=== PATIENT | female | born 1985 | race Caucasian/White ===

== ENCOUNTER 2019-06-13 21:18 | Observation (INO) | payer MEDICAID, SELFPAY ==
[2019-06-13 21:18] VITALS: BP 122/84; PULSE 109; RESP 15; TEMP 36.9; O2SAT 98; BMI 27.5
--- NOTE | 2019-06-13 22:10 | US_ITS ---
STUDY: ABDOMINAL ULTRASOUND - RIGHT UPPER QUADRANT REASON FOR VISIT: Female, 34 years old. Upper abdominal pain TECHNIQUE: Ultrasound evaluation of the right upper quadrant was performed with real-time and static simons-scale imaging. TECHNICAL QUALITY: Adequate. COMPARISON: None. FINDINGS: Liver: The liver measures 18.9 cm. There is normal echogenicity of the liver. The bile ducts are within normal limits. There is hepatic color flow. The direction of portal flow is hepatopetal. There is no demonstrated mass lesion. Gallbladder: The gallbladder wall measures 3.1 mm. There is a positive sonographic Gamez's sign. Gallbladder wall appears edematous. No definitive pericholecystic fluid is seen. There are multiple echogenic structures within the gallbladder, consistent with multiple gallstones. Common Bile Duct (C.B.D.): The common bile duct measures 2.5 mm. Pancreas: Limited visualization. Visualized aspects appear grossly unremarkable. Right Kidney: Normal size of the right kidney. The right kidney measures 10.5 x 5.8 x 3.4 cm. Normal renal cortex. The right cortex measures 1.2 cm. There is no demonstrated renal mass or cyst. There is no right hydronephrosis. US/Gallbladder IMPRESSION: Cholelithiasis. Mild gallbladder wall thickening with edematous wall. There is a positive sonographic Gamez's sign. Findings are concerning for acute cholecystitis. A nuclear medicine HIDA study may be performed to further evaluate as clinically needed. Hepatomegaly. Electronically Signed: Rahul Hastings, at 0:31 EDT Tel , Service support ,
--- NOTE | 2019-06-13 22:11 | RAD_ITS ---
STUDY: X-RAY CHEST REASON FOR EXAM: Female, 34 years old. Cough TECHNIQUE: Frontal and lateral views of the chest. COMPARISON: None. FINDINGS: The lungs are clear and expanded. There is no demonstrated pleural abnormality. Normal size heart. Normal mediastinum and farooq. Normal visualized pulmonary arteries. Normal visualized aortic arch and descending thoracic aorta. Mild scoliotic curvature to the spine. Normal visualized ribs, clavicles, and shoulders. There is no demonstrated abnormality of the visualized soft tissue structures of the upper abdomen. RAD/Chest PA and Lateral IMPRESSION: No acute cardiopulmonary disease identified. Electronically Signed: Rahul Hastings, at 0:44 EDT Tel , Service support ,
--- NOTE | 2019-06-13 22:11 | ED.DCSUM_ITS ---
- ER Visit Summary Date of Service: 06/13/19 Chief Complaint: I did not feel good History of Present Illness: The patient is a 34 F who presents with chief complaint of generally not feeling well. She states that she has had intermittent nausea and vomiting for weeks as well as vague abdominal pain. She has been seen for this. She states she had an ultrasound Friday at another hospital. She initially states that this showed gallstones but then said it just showed sludge. She also complains of nausea. She complains of left-sided abdominal pain. She complains of lower chest pain radiating through to her back. She states she felt feverish today and had a temperature of 101. Physical Examination: Heart rate 109 afebrile vitals otherwise normal Resting comfortably no distress Moist mucous membranes Heart regular slightly tachycardic Lungs are clear Abdomen is soft and nondistended she has diffuse nonfocal abdominal tenderness without guarding without rebound no Gamez's sign Alert Test Results: Labs notable for white count 11.6. Total bilirubin 1.4. Lipase normal. Urinalysis unremarkable and negative. EKG shows normal sinus rhythm at a rate of 82. Chest x-ray shows no acute disease. Gallbladder ultrasound shows cholelithiasis, wall thickening, positive sonographic Gamez sign. Emergency Department Course and Treatment: Given cholelithiasis, pain, vomiting, fever, leukocytosis this presentation is consistent with acute cholecystitis. Patient was given IV Zosyn. Her pain is actually relatively well controlled and she declined any analgesics. She was given IV fluids and Zofran. I spoke to general surgery on-call who agrees to admit Treatment Plan: [] Disposition: Admit Impression: Acute cholecystitis This note was generated with [employer] dictation software. It may contain incorrect words, spelling, and punctuation that were not noted in review of the chart prior to signing ED Disposition - Plan for ED Patient: Referrals: Franchesca Monet, ANN-C [Primary Care Provider] -
--- NOTE | 2019-06-13 22:11 | EKG12_ITS ---
Test Reason : GEN ILLNESS Blood Pressure : / mmHG Vent. Rate : 082 BPM Atrial Rate : 082 BPM P-R Int : 134 ms QRS Dur : 088 ms QT Int : 364 ms P-R-T Axes : 020 048 022 degrees QTc Int : 425 ms Normal sinus rhythm Normal ECG Confirmed by BLANE ZAVALA, MARC ([id number]), scientific publications editor ALLISON ALBERTS ([id number]) on 06/16/2019 10:22:05 AM Referred By: Vinh Banegas Confirmed By:MARC ARGUELLES MD
[2019-06-13 22:15] LABS: Absolute Lymphocyte Count 4.54 X10^3/uL (0.83-4.51); Basophil# 0.04 X10^3/uL; Basophil% 0.3 % (0-1); Eosinophil# 0.38 X10^3/uL; Eosinophils% 3.3 % (0-5); Hematocrit 40.6 % (37-47); Hemoglobin 14.2 g/dL (12.0-15.0); Lymphocyte # 4.54 X10^3/ul (4.0); Lymphocyte % 39.1 % (19-41); Mean Corpuscular Hgb 32.5 pg (27.0-32.0); Mean Corpuscular Volume 92.9 fL (81-99); Mean Platelet Vol. 9.9 fl (6.2-12.0); Monocyte# 0.64 X10^3/uL; Monocyte% 5.5 % (0-10); NRBC Flagged by Analyzer 0 % (0-5); Neutrophil # 5.97 X10^3/uL (2.7-7.7); Neutrophil % 51.5 % (47-70); Platelet Count 218 K/mm3 (150-450); RBC Distribution Width CV 11.9 % (11.6-14.6); RBC Distribution Width SD 41.1 fl (35.1-43.9); Red Blood Count 4.37 M/mm3 (4.2-5.4); White Blood Count 11.6 K/mm3 (4.4-11.0)
[2019-06-13] MEDS: 0.9% Normal Saline 1,000 ML 999 ML IV (22:22)
[2019-06-13] MEDS: Ondansetron 4 MG/2 ML Vial IV (22:22)
[2019-06-13 22:27] LABS: ALB/GLOB Ratio 1.1 RATIO (0.9-2.4); AST(SGOT) 19 U/L (15-37); Alanine Aminotransfer ALT/SGPT 16 U/L (13-56); Albumin, Serum 3.8 g/dL (3.2-5.0); Alkaline Phosphatase 67 U/L (45-117); Anion Gap 8 (5-15); BUN 13 mg/dL (7-18); BUN/Creat Ratio 16.1 RATIO (10-20); Calcium,Total 8.8 mg/dL (8.5-10.1); Chloride 106 mmol/L (98-107); Creatinine, Serum 0.81 mg/dL (0.55-1.02); EST Glomerular Filtration Rate 86 mL/min (>60); Est Glom Filt Rate - Afr Amer 104 mL/min (>60); Estimated Creatinine Clearance 95.48 ml/min; Globulin 3.4 g/dL (2.2-4.2); Glucose 103 mg/dL (74-106); Lipase 164 U/L (73-393); Potassium 3.5 mmol/L (3.5-5.1); Protein, Total 7.2 g/dL (6.4-8.2); Sodium Level 137 mmol/L (136-145)
[2019-06-13 22:28] LABS: Bacteria 0 SEEN /hpf (None Seen); Mucous, Urine 0 SEEN /hpf (<or=2+); Red Blood Cells-Urine 0 SEEN /hpf (0-5)
[2019-06-13 22:31] LABS: Internal QC Validated? YES +Cl - CLEAR BKGD; Pregnancy, Urine Negative Negative
[2019-06-13 22:33] LABS: Color, Urine Yellow (Yellow); Glucose, Dipstick Normal (Normal); Ketone-Dipstick Negative (Negative); Leukocyte Esterase-Dipstick 25 /ul (Negative); Nitrite-Dipstick Negative (Negative); Occult Blood-Urine Negative /ul (Negative); Protein-Dipstick Negative (Negative); Specific Gravity, Urine 1.015 (1.002-1.030); Urine Bilirubin Dipstick Negative (Negative); Urine Clarity Cloudy (Clear); Urine Urobilinogen Normal (Normal)
[2019-06-13 22:38] LABS: White Blood Cells 0-5 SEEN /hpf (0-5)
[2019-06-13 22:40] LABS: Squamous Epithelial Cells - UA 0-5 SEEN /hpf (5-10)
[2019-06-14] VITALS (12 sets, daily range): BP systolic 90–135; BP diastolic 65–97; PULSE 56–106; RESP 16–18; TEMP 36.2–37.1; O2SAT 93–100; BMI 27.8; BMI 27.7
--- NOTE | 2019-06-14 | GALL_PTH ---
PATIENT: MAHSA HAMPTON LOC: MS3 U#:[id number] AGE/SX: 34/F ROOM: ID323 RE06/14/[address]: Dr. Vinh Banegas MD : 1985 BED: 1 DIS: 06/15/2019 SPEC #: [id number] RECD: 06/14/19 16:45 STATUS: LISA BREENAgustina #: [id number] LEONARDO: 06/14/19 00:[address]: Vinh Banegas DEPT: SURGICAL PATHOLOGY RECD BY: Desmond Cole ENTERED: 06/15/19 11:51 SP TYPE: TIM MONTILLA DR: Franchesca Monet, PLACING JUDGE-C Tissues: Gallbladder, NOS Procedures: Surgery Specimen Level III HEADER OPERATION: Laparoscopic cholecystectomy with IOC PRE-OP DIAGNOSIS: Acute cholecystitis TISSUE SUBMITTED: Gallbladder MICROSCOPIC DIAGNOSIS Gallbladder, cholecystectomy: Chronic cholecystitis. AM:ck 06/16/19 MICROSCOPIC DESCRIPTION Slides are reviewed. GROSS DESCRIPTION Received is one container labeled with the patient's name and designated gallbladder. The specimen consists of a gallbladder measuring 10.5 cm in length and 3.5 cm in diameter. The external surface is pink-rahman, smooth and glistening for the most part. Focally it is granular, hemorrhagic and contains cautery artifact. The gallbladder contains green-yellow mucoid bile. No stones are identified in the container or in the gallbladder. The mucosa is bile-stained and without any mass lesions. The gallbladder wall measures up to 0.1 cm in thickness. A focal cystic area is noted at the fundus of the gallbladder measuring 0.4 cm in diameter. Optical Glass Sawyer sections from the gallbladder and the cystic duct are submitted in one cassette. / SJ:ck 06/15/19 TC:3 [facility]: [id number]
[2019-06-14 06:21] LABS: Absolute Lymphocyte Count 4.57 X10^3/uL (0.83-4.51); Absolute Neutrophil Count 4.9 X10^3/uL (2.0-7.7); Basophil# 0.04 X10^3/uL; Basophil% 0.4 % (0-1); Eosinophils% 3.8 % (0-5); Hematocrit 37.6 % (37-47); Hemoglobin 12.6 g/dL (12.0-15.0); Lymphocyte # 4.57 X10^3/ul (4.0); Lymphocyte % 43.2 % (19-41); Mean Corp Hgb Conc 33.5 g/dL (32-36); Mean Corpuscular Hgb 31.7 pg (27.0-32.0); Mean Corpuscular Volume 94.7 fL (81-99); Mean Platelet Vol. 10.1 fl (6.2-12.0); Monocyte# 0.62 X10^3/uL; Monocyte% 5.9 % (0-10); NRBC Flagged by Analyzer 0 % (0-5); Neutrophil # 4.93 X10^3/uL (2.7-7.7); Neutrophil % 46.6 % (47-70); Platelet Count 171 K/mm3 (150-450); RBC Distribution Width CV 12.1 % (11.6-14.6); RBC Distribution Width SD 42.4 fl (35.1-43.9); Red Blood Count 3.97 M/mm3 (4.2-5.4); White Blood Count 10.6 K/mm3 (4.4-11.0)
[2019-06-14] MEDS: Ondansetron 4 MG/2 ML Vial IV ×2 (06:45→23:53)
[2019-06-14 06:49] LABS: ALB/GLOB Ratio 1.1 RATIO (0.9-2.4); AST(SGOT) 16 U/L (15-37); Alanine Aminotransfer ALT/SGPT 13 U/L (13-56); Alkaline Phosphatase 55 U/L (45-117); Anion Gap 7 (5-15); BUN 11 mg/dL (7-18); BUN/Creat Ratio 15.4 RATIO (10-20); Calcium,Total 7.6 mg/dL (8.5-10.1); Chloride 111 mmol/L (98-107); Creatinine, Serum 0.72 mg/dL (0.55-1.02); EST Glomerular Filtration Rate 99 mL/min (>60); Est Glom Filt Rate - Afr Amer 120 mL/min (>60); Estimated Creatinine Clearance 108.45 ml/min; Globulin 2.7 g/dL (2.2-4.2); Glucose 94 mg/dL (74-106); Potassium 3.2 mmol/L (3.5-5.1); Protein, Total 5.7 g/dL (6.4-8.2); Sodium Level 141 mmol/L (136-145)
--- NOTE | 2019-06-14 07:48 | HP.PCM_ITS ---
Problem List (1) Acute cholecystitis Status: Acute History of Present Illness Date of Admission: 06/14/19 The patient is a 34 year old F who reports for the past few weeks she has been having right upper quadrant and epigastric pain. She says that a week ago she was at another ER and ultrasound showed sludge in her gallbladder. She reports no fevers or chills. She says she does have nausea and vomiting. She says that food makes the pain worse about an hour later. The only thing she is been able to eat has been turkey. Past Medical History Allergies No Known Allergies Allergy (Verified 06/13/19 21:22) Home Medications: Ambulatory Orders Medication Instructions Recorded Clonazepam [Klonopin] 0.5 mg PO DAILY 06/16/16 Ascorbic Acid [Vitamin C] 500 mg PO BID 06/14/19 Surgical History: no surgical history Smoking Status: Current every day smoker - *Family History Maternal History Items: No pertinent history Review of Systems Constitutional: Reports: Anorexia. Denies: Chills, Fever HEENT: Denies: Difficulty Swallowing Cardiovascular: Denies: Chest Pain Respiratory: Denies: Cough, Shortness of Breath Gastrointestinal: Reports: Abdominal Pain, Nausea, Vomiting. Denies: Diarrhea, Hematemesis, Hematochezia Genitourinary: Denies: Dysuria Musculoskeletal: Denies: Joint Tenderness Skin: Denies: Jaundice Neurological: Denies: Balance problems Hematologic/ Lymphatic: Denies: Anemia VTE Information - Inpt Only VTE Present on Admission: No VTE Mechan Device Prophylaxis: SCD's Patient Problems: Active and Suspected Problems Acute cholecystitis (Acute) - Physical Exam General: Alert, Oriented x3 HEENT: Atraumatic Neck: No JVD Lungs: Normal air movement Cardiovascular: Regular rate, Regular Rhythm Abdomen: Soft, Non-Distended, Tender - Tender in the epigastric region Psych/Mental Status: Normal Affect Vital Signs Temp Pulse Resp BP Pulse Ox 98.1 F 73 16 115/81 H 100 06/14/19 02:48 06/14/19 02:48 06/14/19 02:48 06/14/19 02:48 06/14/19 02:48 Oxygen Delivery Method Room Air Weight: 137 lb 9.095 oz Body Mass Index (BMI) 27.8 Intake and Output for Last 24 Hours 06/12/19 06/13/19 06/14/19 23:59 23:59 23:59 Intake Total 331 / 331 Balance 331 / 331 Laboratory Tests Past 24 Hrs 06/13/19 06/13/19 06/13/19 21:39 21:39 22:20 WBC 11.6 H RBC 4.37 Hgb 14.2 Hct 40.6 MCV 92.9 MCH 32.5 H MCHC 35.0 RDW Std Deviation 41.1 RDW Coeff of Nikkie 11.9 Plt Count 218 MPV 9.9 Immature Gran % (Auto) 0.300 Neut % (Auto) 51.5 Lymph % (Auto) 39.1 [place] % (Auto) 5.5 Eos % (Auto) 3.3 Baso % (Auto) 0.3 Absolute Neuts (auto) 6.0 Absolute Lymphs (auto) 4.54 H Nucleated RBC % 0 Sodium 137 Potassium 3.5 Chloride 106 Carbon Dioxide 23.0 Anion Gap 8 BUN 13 Creatinine 0.81 Estim Creat Clear Calc 95.48 Est GFR (MDRD) Af Amer 104 Est GFR (MDRD) Non-Af 86 BUN/Creatinine Ratio 16.1 Glucose 103 Calcium 8.8 Total Bilirubin 1.40 H AST 19 ALT 16 Alkaline Phosphatase 67 Total Protein 7.2 Albumin 3.8 Globulin 3.4 Albumin/Globulin Ratio 1.1 Lipase 164 Urine Color Urine Clarity Urine pH Ur Specific [place] Urine Protein Urine Glucose (UA) Urine Ketones Urine Occult Blood Urine Nitrite Urine Bilirubin Urine Urobilinogen Ur Leukocyte Esterase Urine RBC Urine WBC Ur Squamous Epith Cells Urine Bacteria Urine Mucus Urine Test Negative 06/13/19 06/14/19 06/14/19 22:20 06:04 06:04 WBC 10.6 RBC 3.97 L Hgb 12.6 Hct 37.6 MCV 94.7 MCH 31.7 MCHC 33.5 RDW Std Deviation 42.4 RDW Coeff of [place] 12.1 Plt Count 171 MPV 10.1 Immature Gran % (Auto) 0.100 Neut % (Auto) 46.6 L Lymph % (Auto) 43.2 H [place] % (Auto) 5.9 Eos % (Auto) 3.8 Baso % (Auto) 0.4 Absolute Neuts (auto) 4.9 Absolute Lymphs (auto) 4.57 H Nucleated RBC % 0 Sodium 141 Potassium 3.2 L Chloride 111 H Carbon Dioxide 23.0 Anion Gap 7 BUN 11 Creatinine 0.72 Estim Creat Clear Calc 108.45 Est GFR (MDRD) Af Amer 120 Est GFR (MDRD) Non-Af 99 BUN/Creatinine Ratio 15.4 Glucose 94 Calcium 7.6 L Total Bilirubin 1.60 H AST 16 ALT 13 Alkaline Phosphatase 55 Total Protein 5.7 L Albumin 3.0 L Globulin 2.7 Albumin/Globulin Ratio 1.1 Lipase Urine Color Yellow Urine Clarity Cloudy Urine pH 6.0 Ur Specific [place] 1.015 Urine Protein Negative Urine Glucose (UA) Normal Urine Ketones Negative Urine Occult Blood Negative Urine Nitrite Negative Urine Bilirubin Negative Urine Urobilinogen Normal Ur Leukocyte Esterase 25 H Urine RBC 0 SEEN Urine WBC 0-5 SEEN Ur Squamous Epith Cells 0-5 SEEN Urine Bacteria 0 SEEN Urine Mucus 0 SEEN Urine Test Clinical Impression(s) from Imaging Studies Chest X-Ray 06/13/19 22:11 IMPRESSION: No acute cardiopulmonary disease identified. Electronically Signed: Rahlu Guerreroford, at 0:44 EDT Tel , Service support , Assessment/Plan All Active Problems Acute cholecystitis (Acute) 34-year-old female with acute cholecystitis 1. The patient had slightly elevated white count and ultrasound shows cholelithiasis as well as edematous gallbladder wall. Patient had a positive sonographic Gamez sign. Recommend laparoscopic cholecystectomy. Patient was admitted overnight and started on antibiotics and kept n.p.o. 2. I discussed the procedure in detail with the patient. I discussed the risks, benefits, and alternatives of the procedure. I discussed the risks including but not limited to bleeding, infection, injury to surrounding organs such as the liver, bile duct, bowels. I did discuss the possibility of having to convert to an open procedure as well as the possibility that if any injuries occurred this may necessitate further surgery at a tertiary care center. Vinh Banegas MD Pager: [facility] [address] [place] [address], [address] [place] [address] Office:
[2019-06-14] MEDS: 0.9% Normal Saline 1,000 ML 100 ML IV ×2 (08:46→19:49)
--- NOTE | 2019-06-14 12:00 | RAD_ITS ---
STUDY: INTRAOPERATIVE INTRA CHOLANGIOGRAM. REASON FOR EXAM: Female, 34 years old. Laparoscopic cholecystectomy. FLUOROSCOPY TIME (if supplied): (0:14) minutes/seconds. TECHNIQUE: And intraoperative glenoid rim was performed by the surgeon. Imaging series was obtained. COMPARISON: None. FINDINGS: The intrahepatic biliary ducts are unremarkable. The common bile duct is not dilated. No intraluminal filling defect is seen. There is free flow of contrast into the duodenum. RAD/Cholangiogram/ O R,Initial IMPRESSION: Unremarkable intraoperative cholangiogram. Electronically Signed: Brian Garcia, at 8:46 EDT , Service support ,
--- NOTE | 2019-06-14 12:09 | NURSING ---
REPORT CALLED TO SUSHILA IN AC. PT OFF UNIT.
[2019-06-14] MEDS: Bupiv/Epi 0.25% 30 ML Vial (13:19)
--- NOTE | 2019-06-14 16:25 | PCM.OPRPT ---
Problem List (1) Acute cholecystitis Status: Acute Report of Operation Date of Procedure: 06/14/19 Pre-Operative Diagnosis: Acute cholecystitis Post-Operative Diagnosis: Acute cholecystitis Surgery/Procedure Performed:: Laparoscopic cholecystectomy with cholangiogram Specimen's removed: Gallbladder and contents Drains: JÚNIOR to bulb suction Description of Procedure: After obtaining informed consent patient was brought back to the operating room. General anesthesia was induced. The abdomen was prepped and draped in usual sterile fashion. A small midline incision was made superior to the umbilicus and deepened to the level of fascia. The fascia was elevated and incised. Next the peritoneum was elevated and incised in the same fashion. Finger sweep was performed and the Le trocar was placed into the abdomen. The balloon was inflated. The abdomen was inflated to 15 mmHg. Next a camera was introduced into the abdomen and the abdomen was inspected. The gallbladder was inflamed at the infundibulum. Next under direct visualization three 5-mm ports were placed one subxiphoid and 2 subcostal. Next the gallbladder was elevated and retracted toward the right shoulder. The peritoneum was stripped from the gallbladder. The infundibulum was located and retracted laterally. Next the triangle of Calot was dissected and the cystic duct and cystic artery were identified. Cholangiograms were performed. The Art clamp was used to clamp across the infundibulum and the catheter needle was inserted into the gallbladder. Under fluoroscopy contrast was instilled into the gallbladder and the common duct, cystic duct as well as proximal hepatic ducts were identified. There was good filling of the duodenum. There were no filling defects noted in the common bile duct. The clamp was removed as well as the needle and the infundibulum was grasped once more. Three hemolock clips were placed across the cystic duct. The cystic duct was then divided leaving 2 clips on the stump. The cystic artery was clipped and divided in the same fashion. The hook cautery was then used to take the gallbladder off of the gallbladder bed. Hemostasis was obtained. Gallbladder fossa was irrigated with 2 L of saline. There was still some yellow tinge to the irrigant but no carmen bile leak was identified. To continue to monitor this a 15 [place] round drain was placed in the lateral port and placed in the gallbladder fossa. The drain was sutured into place. Next the camera switched to a 5 mm camera and introduced in the subxiphoid port. An Endopouch bag was placed through the umbilical port and the gallbladder was placed into it. The gallbladder was then removed through the umbilical incision. The camera was then reinserted through the umbilical port. The gallbladder fossa was inspected once more and noted to be hemostatic with no leaking bile. The abdomen was suctioned dry. The 5 mm ports were removed under direct visualization. The umbilical port was then removed and the air was removed from the abdomen. Next using an 0 Vicryl suture the umbilical fascia was closed in a [id number]-fobni fashion. The umbilical port site was irrigated local anesthetic was administered to all the incisions. All the incisions were closed with interrupted subcuticular 4-0 Monocryl sutures followed by Steri-Strips and dressings. The patient was awoken and taken to PACU in stable condition. - Admit VTE Documentation VTE Present on Admission: No VTE Mechan Device Prophylaxis: SCD's
[2019-06-14] MEDS: 0.9% NaCl Peripheral Flush Adult/Peds IV (17:57)
[2019-06-14] MEDS: Morphine 2 MG/ML Syringe IV ×2 (17:57→23:53)
[2019-06-14] MEDS: oxyCODONE 5 MG Tablet PO (20:07)
[2019-06-15 04:20] VITALS: BP 105/68; PULSE 69; RESP 18; TEMP 36.6; O2SAT 98
[2019-06-15] MEDS: Morphine 2 MG/ML Syringe IV (04:30)
[2019-06-15 05:51] LABS: Absolute Lymphocyte Count 1.59 X10^3/uL (0.83-4.51); Absolute Neutrophil Count 9.3 X10^3/uL (2.0-7.7); Basophil# 0.02 X10^3/uL; Basophil% 0.2 % (0-1); Hematocrit 36.6 % (37-47); Hemoglobin 12.3 g/dL (12.0-15.0); Lymphocyte # 1.59 X10^3/ul (4.0); Lymphocyte % 13.8 % (19-41); Mean Corp Hgb Conc 33.6 g/dL (32-36); Mean Corpuscular Hgb 31.8 pg (27.0-32.0); Mean Corpuscular Volume 94.6 fL (81-99); Mean Platelet Vol. 10.2 fl (6.2-12.0); Monocyte# 0.56 X10^3/uL; Monocyte% 4.9 % (0-10); NRBC Flagged by Analyzer 0 % (0-5); Neutrophil # 9.33 X10^3/uL (2.7-7.7); Neutrophil % 80.8 % (47-70); Platelet Count 177 K/mm3 (150-450); RBC Distribution Width CV 12.3 % (11.6-14.6); RBC Distribution Width SD 42.5 fl (35.1-43.9); Red Blood Count 3.87 M/mm3 (4.2-5.4); White Blood Count 11.5 K/mm3 (4.4-11.0)
[2019-06-15] MEDS: Ondansetron 4 MG/2 ML Vial IV (05:59)
[2019-06-15 06:12] LABS: AST(SGOT) 68 U/L (15-37); Alanine Aminotransfer ALT/SGPT 56 U/L (13-56); Albumin, Serum 2.9 g/dL (3.2-5.0); Alkaline Phosphatase 66 U/L (45-117); Anion Gap 10 (5-15); BUN 4 mg/dL (7-18); BUN/Creat Ratio 6.7 RATIO (10-20); Calcium,Total 7.6 mg/dL (8.5-10.1); Chloride 112 mmol/L (98-107); EST Glomerular Filtration Rate 122 mL/min (>60); Est Glom Filt Rate - Afr Amer 147 mL/min (>60); Estimated Creatinine Clearance 130.14 ml/min; Globulin 2.8 g/dL (2.2-4.2); Glucose 108 mg/dL (74-106); Potassium 3.7 mmol/L (3.5-5.1); Protein, Total 5.7 g/dL (6.4-8.2); Sodium Level 143 mmol/L (136-145)
--- NOTE | 2019-06-15 07:51 | PCM.PN.SRG ---
Patient Problems: Active and Suspected Problems Acute cholecystitis (Acute) Subjective: Patient appears to be doing well this morning. She denies any nausea or vomiting. She says her pain is at her incision sites now in the epigastric pain is resolved. - Physical Exam General: Alert, Oriented x3 Lungs: Normal air movement Cardiovascular: Regular rate, Regular Rhythm Abdomen: Soft, Non-Distended, Tender - Tender at the incision sites, - - JÚNIOR is serous Vital Signs Temp Pulse Resp BP Pulse Ox 98 F 69 18 105/68 98 06/15/19 04:20 06/15/19 04:20 06/15/19 04:20 06/15/19 04:20 06/15/19 04:20 Oxygen Delivery Method Room Air Weight: 137 lb 9.095 oz Body Mass Index (BMI) 27.7 Intake and Output for Last 24 Hours 06/13/19 06/14/19 06/15/19 23:59 23:59 23:59 Intake Total 2368 / 2368 845 / 845 Output Total 270 / 270 235 / 235 Balance 2098 / 2098 610 / 610 Laboratory Tests Past 24 Hrs 06/15/19 06/15/19 05:25 05:25 WBC 11.5 H RBC 3.87 L Hgb 12.3 Hct 36.6 L MCV 94.6 MCH 31.8 MCHC 33.6 RDW Std Deviation 42.5 RDW Coeff of [place] 12.3 Plt Count 177 MPV 10.2 Immature Gran % (Auto) 0.300 Neut % (Auto) 80.8 H Lymph % (Auto) 13.8 L [place] % (Auto) 4.9 Eos % (Auto) 0.0 Baso % (Auto) 0.2 Absolute Neuts (auto) 9.3 H Absolute Lymphs (auto) 1.59 Nucleated RBC % 0 Sodium 143 Potassium 3.7 Chloride 112 H Carbon Dioxide 21.0 Anion Gap 10 BUN 4 L Creatinine 0.60 Estim Creat Clear Calc 130.14 Est GFR (MDRD) Af Amer 147 Est GFR (MDRD) Non-Af 122 BUN/Creatinine Ratio 6.7 L Glucose 108 H Calcium 7.6 L Total Bilirubin 2.00 H AST 68 H ALT 56 Alkaline Phosphatase 66 Total Protein 5.7 L Albumin 2.9 L Globulin 2.8 Albumin/Globulin Ratio 1.0 Medical Necessity - Tobacco Use Smoking Status: Current every day smoker Assessment/Plan All Active Problems Acute cholecystitis (Acute) 34-year-old female status post laparoscopic cholecystectomy for acute cholecystitis 1. Patient had some bile spillage during surgery and the irrigation was still yellow-tinged and I left a drain to monitor for bile leak. Her JÚNIOR is serous this morning with no sign of bile. I will advance her diet as tolerated and remove the drain later today anticipating discharge later today. Vinh Banegas MD Pager: [facility] [address] [place] [address] [address] [place] [address] Office:
--- NOTE | 2019-06-15 07:54 | DCINST_ITS ---
Discharge Diet: Light diet - advance as tolerated Discharge Activity: Return to Normal Activity, May Not Drive - for 2-3 days or while taking narcotic pain medicataions. May shower in (days): 1 - with the bandage in place. Lifting Restrictions: 20 lbs for 2 weeks Additional Activity Instructions:: Pain medication may cause nausea. You should typically eat light foods as you take your pain medications. Pain medication may also cause constipation. If this is a problem for you, please discuss with your doctor. Call your doctor if your incision/area has: Continuous Slow Oozing, Sudden Increased Bleeding, Increased Pain/ Swelling, Increased Redness, Foul Smelling Discharge, Fever of 101 or Higher Call your doctor if you observe: Fever of 101 or Higher Suture Line Care: Avoid Pulling/Pushing, Avoid Pinching/Bending Additional Dressing/Incision Instructions:: Leave operative bandaids on for 2 days. When you remove dressing, leave Steri-Strips on until your follow-up appointment, or until the Steri-Strips fall off on their own. Allergies/Adverse Reactions: Allergies No Known Allergies Allergy (Verified 06/13/19 21:22) Medications to take at Discharge Clonazepam [Klonopin] 0.5 mg PO DAILY 06/16/16 Ascorbic Acid [Vitamin C] 500 mg PO BID 06/14/19 Oxycodone [Oxyir] 5 - 10 mg PO Q4H PRN PRN 6 Days #30 tablet 06/15/19 The following prescriptions were given: Oxycodone [Oxyir] 5 - 10 mg PO Q4H PRN PRN 6 Days #30 tablet PRN Reason: Severe Pain (6-08/19) Transmission Status: Sent to [facility] Primary Care Physician: Franchesca Monet NP-C [Primary Care Provider] - Test Results: Test results from this visit will be discussed in further detail at your follow- up appointment, if applicable. Please Follow Up With: Vinh Banegas MD When: Please call to schedule 2 week follow up appointment. [phone]
[2019-06-15] MEDS: clonazePAM 0.5 MG Tablet PO (08:48)
[2019-06-15 08:50] VITALS: BP 111/77; PULSE 75; RESP 16; TEMP 36.8; O2SAT 98
[2019-06-15] MEDS: oxyCODONE 5 MG Tablet PO (11:59)
[2019-06-15 12:40] VITALS: BP 106/73; PULSE 76; RESP 16; TEMP 36.8; O2SAT 99
== END 2019-06-15 12:50 | disposition home or self-care (01) ==
LOC: ED 22:19 → MS3 06-14 02:04
PROVIDERS: Admitting Provider Surgery; Emergency Provider Emergency Medicine; Family Provider Nurse Practitioner Family; PCP Nurse Practitioner Family; Referring Provider Surgery; Visit Provider Surgery
PROC: (CPT 47610; principal; 2019-06-14 12:50)
DX: K81.2 Acute cholecystitis with chronic cholecystitis (principal); F41.9 Anxiety disorder, unspecified; Z79.899 Other long term (current) drug therapy; K21.9 Gastro-esophageal reflux disease without esophagitis; F17.200 Nicotine dependence, unspecified, uncomplicated
CPT/HCPCS: 47563; 36415; 71046; 74300; 76000; 76705; 80053; 81001; 81025; 83690; 85025; 88304; 93005; 96361; 96365; 96366; 96375; 96376; 97802; 99218; 99284; J7030; J7040; A4216; G0378; J2405

== ENCOUNTER 2020-07-16 12:34 | Emergency (ER) | payer MEDICAID, SELFPAY ==
[2019-06-29 08:56] VITALS: BMI 27.7
[2020-07-16 12:35] VITALS: BP 126/84; PULSE 94; RESP 18; TEMP 36.3; O2SAT 100; BMI 23.5
--- NOTE | 2020-07-16 12:46 | RAD_ITS ---
STUDY: X-RAY - RIGHT WRIST REASON FOR EXAM: Female, 35 years old. NO INJURY. PAIN X 1 WEEK TECHNIQUE: view(s) of the wrist were obtained. COMPARISON: None. FINDINGS: Normal visualized distal radius and ulna. Normal radiocarpal articulation. Normal distal radioulnar articulation. Normal carpal bones. Normal carpal articulations. Normal carpometacarpal articulation of the thumb. Normal second through fifth carpometacarpal articulations. Normal visualized metacarpal bones. The soft tissue structures are unremarkable. RAD/Wrist min 3 Views IMPRESSION: Normal x-ray examination of the wrist. Electronically Signed: Saravanan Escobedo MD ([place]) at 13:15 EDT , Service support ,
--- NOTE | 2020-07-16 12:46 | ED.VIS.UPPEX ---
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 She has had continued pain mostly on ulnar aspect. No weakness or trauma. No swelling or bruising. No redness. No numbness tingling or weakness. She denies any other review of systems at this time. Prior similar symptoms: No Recent Illness/Hospitalization: No <Vinh Latif - Last Filed: 07/16/20 13:26> <Cl Penn - Last Filed: 07/16/20 14:09> Chief Complaint: Upper Extremity Injury Past Medical History Surgical History: no surgical history Smoking Status: Current every day smoker - Family History Maternal Family History: Family History (Last Updated 06/29/19 @ 08:55 by Tatiana Gardner) Mother Hypertension Sister Hypertension Family History: Reports: No pertinent history <Vinh Latif - Last Filed: 07/16/20 13:26> - Family History Maternal Family History: Family History (Last Updated 06/29/19 @ 08:55 by Tatiana Gardner) Mother Hypertension Sister Hypertension <Cl Penn - Last Filed: 07/16/20 14:09> - Allergies and Home Meds Allergies/Adverse Reactions: Allergies No Known Allergies Allergy (Verified 06/29/19 08:56) Primary Care Physician: Franchesca Monet [employer], [employer] [Primary Care Provider] - 3-5 Days Review of Systems All systems negative except as indicated General: Denies: Chills, Fever, Sweats Eyes: Denies: Visual changes - bilaterally, Diplopia ENT: Denies: Rhinorrhea, Sore throat Cardiovascular: Denies: Chest pain, Palpitations Respiratory: Denies: Dyspnea, Cough, Dyspnea on exertion Gastrointestinal: Denies: Abdominal pain, Nausea, Vomiting, Diarrhea, Melena, Hematochezia Genitourinary: Denies: Dysuria, Hematuria, Frequency Musculoskeletal: Reports: Extremity Pain. Denies: Back pain, Swelling Skin: Denies: Rash, Wounds Neurological: Denies: Headache, Weakness, Numbness <Vinh Latif - Last Filed: 07/16/20 13:26> Physical Exam Vital Signs/Narrative: Vital Signs Temp Pulse Resp BP Pulse Ox 07/16/20 12:35 97.3 F L 94 18 126/84 H 100 Inital Vital Signs reviewed: Yes Right Wrist: - - Normal inspection of right wrist. No swelling no bruising no rash no redness no signs of trauma. She has some bony tenderness on the distal ulna. There is no other bony tenderness of the wrist. She is able to flex and extend actively with mild pain. She has no pain with pronation or supination. Radial pulse is normal. Capillary refill and sensation all 5 fingers normal General: Well nourished, Well developed Head: Normocephalic, Atraumatic Eyes: Perrl, EOMI ENT: No Trauma, Moist Mucous Membranes Neck: Nontender, Full ROM Cardiovascular: Regular rate, Regular rhythm, No murmurs Respiratory: No distress, CTA bilaterally, Chest nontender Abdomen: Soft, Nontender, Nondistended, Normal bowel sounds Back: Nontender Skin: Normal color, No rash Neurological: Alert, Oriented x3, Cranial nerves II-XII grossly intact, Normal Strength, Normal Sensation Psychological: Normal affect <Vinh Latif - Last Filed: 07/16/20 13:26> Vital Signs/Narrative: Vital Signs Temp Pulse Resp BP Pulse Ox 07/16/20 12:35 97.3 F L 94 18 126/84 H 100 <Cl Penn - Last Filed: 07/16/20 14:09> Diagnostic/Tx/Re-eval Impressions Wrist X-Ray 07/16/20 12:46 IMPRESSION: Normal x-ray examination of the wrist. Electronically Signed: Saravanan Escobedo MD ([place]) at 13:15 EDT , Service support , 07/16/20 12:46 Xray Wrist [Wrist min 3 Views] [RAD] Stat - Medical Decision Making Patient declined analgesia. X-ray of the right wrist shows no acute findings. Patient likely has tendinitis. She already has a splint she will continue to wear she will rest ice and elevate she will use anti-inflammatories [id number] and follow-up with her primary care physician. <Vinh Latif - Last Filed: 07/16/20 13:26> - Medical Decision Making Patient was seen with me. I did a [id number] examination with the patient. Patient presents with right wrist pain that has been getting progressively worse over the past few weeks. Patient denies any trauma or injury. Patient states the pain is worse with extension of her wrist. Patient states the pain is worse over the dorsal aspect of her wrist. Patient denies any paresthesias or weakness. Patient has been wearing her brace with no improvement. Vital signs are stable. Patient is afebrile. Patient is in no acute distress. Musculoskeletal exam reveals tenderness over the dorsal aspect of the right wrist. There is no tenderness over the anatomic snuffbox. Range of motion was slightly limited in dorsiflexion of the right wrist secondary to pain. Radial pulses are equal bilaterally. Capillary refill is less than 2 seconds in all digits. Sensation was intact light touch in all digits. X-rays of the right wrist were obtained. There is no acute fracture. These were interpreted by the radiologist and reviewed by myself. Patient was instructed to continue wearing her brace. Patient was instructed to use anti-inflammatory medication as needed for pain. Patient was instructed to follow-up with her primary care physician in 5 to 7 days. Patient understood and was agreeable with the plan. All questions were answered. <Cl Penn - Last Filed: 07/16/20 14:09> ED Disposition <Vinh Latif - Last Filed: 07/16/20 13:26> <Cl Penn - Last Filed: 07/16/20 14:09> - Plan for ED Patient: Disposition: Home or Assisted Living Diagnosis: Tendonitis of wrist, right Instructions: ED Sprain Wrist Referrals: Franchesca Monet NP, [employer] [Primary Care Provider] - 3-5 Days
== END 2020-07-16 14:07 | disposition home or self-care (01) ==
PROVIDERS: Emergency Provider Physician Assistant Medical; PCP Nurse Practitioner Family
DX: M77.9 Enthesopathy, unspecified (principal); F17.200 Nicotine dependence, unspecified, uncomplicated; Z82.49 Family history of ischemic heart disease and other diseases of the circulatory system
CPT/HCPCS: 73110; 99282

== ENCOUNTER 2022-01-17 09:50 | Day surgery (SDC) | payer MEDICAID, SELFPAY ==
--- NOTE | 2022-01-08 08:05 | PCM.HP.BLA ---
History and Physical Date of Admission: 01/17/22 Pre-Op History and Physical ? HPI: The patient is a 36 year old female presenting for pre-operative visit. She is scheduled for laparoscopic bilateral salpingectomy , for desires sterilization on 01/17/22. Procedure discussed along with risks, benefits and complications. Other alternatives discussed for management. Consent form signed? Yes. ? ? PAST MEDICAL HISTORY PAST MEDICAL HISTORY Diagnosis Date ? Tubular adenoma ? ? ? PAST SURGICAL HISTORY PAST SURGICAL HISTORY Procedure Laterality Date ? SECTION HX ? 03/13/2021 ? COLONOSCOPY SCREENING ? 10/17/2021 ? EGD ? 10/17/2021 ? NEXPLANON INSERTION ? 04/17/2021 ? removed 09/11/2021 ? REMOVAL GALLBLADDER ? CURRENT MEDICATIONS Current Outpatient Medications Medication Sig Dispense Refill ? FLUoxetine (PROZAC) 10 mg capsule TAKE ONE CAPSULE BY MOUTH DAILY FOR 6 DAYS , THEN INCREASE TO TWO CAPSULES DAILY THEREAFTER. ? ? ? omeprazole (PRILOSEC) 20 mg capsule Take 1 capsule by mouth twice daily. 60 capsule 2 ? LORazepam (ATIVAN) 0.5 mg ? Cholecalciferol, Vitamin D3, (VITAMIN D) 25 mcg (1,000 unit) cap Take 1,000 Units by mouth once daily. ? ? ? polyethylene glycol 3350 (MIRALAX, GLYCOLAX) 17 gram/dose powder Use as directed for Miralax / Gatorade Bowel Prep Kit 238 g 0 ? Bisacodyl (DULCOLAX) 5 mg tab Use as directed for Miralax / Gatorade Bowel Prep Kit 4 tablet 0 ? No current facility-administered medications for this visit. ? ? ALLERGIES: Patient has no known allergies. ? PERSONAL HISTORY: SOCIAL HISTORY Social History ? Tobacco Use ? Smoking status: Current Every Day Smoker ? Smokeless tobacco: Never Used Vaping Use ? Vaping Use: Never used Substance Use Topics ? Alcohol use: Never ? Drug use: Never ? FAMILY HISTORY: FAMILY HISTORY FAMILY HISTORY Family history unknown: Yes ? ? REVIEW OF SYMPTOMS: negative except as noted above PHYSICAL EXAMINATION: ? VITALS: Blood pressure 140/80, weight 139 lb (63 kg), last menstrual period 12/20/2021, not currently . ? GENERAL: The patient is well nourished, well hydrated in no acute distress. , The patient is oriented to time, place, and person. NECK: full range of motion NEURO: alert and oriented x 3 ? IMPRESSION: 36yo desires permanent sterilization ? PLAN: Laparoscopic bilateral salpingectomy ? Pt has been counseled on risks/benefits and alternatives of surgery including but not limited to anesthesia, bleeding, infection, injury to pelvic structures including bowel, bladder, ureters and vessels. Pt wishes to proceed with surgery at this time. Reviewed risk of regret. Title 19 previously signed. ? Pre and post op instructions reviewed Reviewed post op meds- Tylenol, motrin and gas pills if needed. ? I have reviewed and updated past medical and surgical history, medications and allergies Viridiana Go MD ?4:43 PM
[2022-01-17] VITALS (7 sets, daily range): BP systolic 105–140; BP diastolic 69–97; PULSE 73–87; RESP 16–18; TEMP 36.3–37.3; O2SAT 87–100; BMI 27.5
--- NOTE | 2022-01-17 | FALS_PTH ---
PATIENT: MAHSA HAMPTON [place] [facility] [place][id number] AGE/SX: 36/F ROOM: RE01/17/[address]: Dr. Viridiana Hickman, MDDOB: 1985 BED: DIS: 01/17/2022 SPEC #: [id number] RECD: 01/17/22 12:54 STATUS: LISA SOLOMON #: [id number] LEONARDO: 01/17/22 00:[address]: Viridiana Hickman DEPT: SURGICAL PATHOLOGY RECD BY: Desmond Cole ENTERED: 01/17/22 12:55 SP TYPE: FALL TUBES OTHR DR: Nereida Martinez, JOSE Tissues: Fallopian tube Procedures: Surgery Specimen Level II HEADER OPERATION: Laparoscopic salpingectomy PRE-OP DIAGNOSIS: , sterilization TISSUE SUBMITTED: Bilateral fallopian tubes MICROSCOPIC DIAGNOSIS Bilateral fallopian tubes, salpingectomy: Bilateral fallopian tubes, no pathologic diagnosis. TAMMY:ck 01/18/2022 MICROSCOPIC DESCRIPTION Slides are reviewed. GROSS DESCRIPTION Received in fixative is one container labeled with the patient's name and designated bilateral fallopian tubes. The specimen consists of bilateral fallopian tubes including fimbrial ends each measuring 6 cm in length and 0.5 cm in diameter. The fallopian tubes are not identified as right or left. Sections reveal unremarkable cut surfaces. Behavior Interventionist sections are submitted in two cassettes with each cassette containing one fallopian tube. / TAMMY:ck 01/17/2022 TC:4 CPT: 32839 x2
[2022-01-17 10:35] LABS: Internal QC Validated? YES +Cl - CLEAR BKGD; Pregnancy, Urine Negative Negative
[2022-01-17] MEDS: 0.9% Normal Saline 1,000 ML 150 ML IV (10:44)
[2022-01-17] MEDS: Famotidine 20 MG Tablet 40 MG PO (10:59)
[2022-01-17 11:03] LABS: Mean Corp Hgb Conc 33.3 g/dL (32-36); Mean Corpuscular Hgb 29.8 pg (27.0-32.0); Mean Corpuscular Volume 89.4 fL (81-99); Platelet Count 228 K/mm3 (150-450); RBC Distribution Width CV 12.9 % (11.6-14.6); RBC Distribution Width SD 42.6 fl (35.1-43.9); White Blood Count 9.5 K/mm3 (4.4-11.0)
[2022-01-17 11:11] LABS: Partial Thromboplast Time 26.5 Seconds (24.1-36.2)
[2022-01-17 11:39] LABS: AST(SGOT) 17 U/L (15-37); Alanine Aminotransfer ALT/SGPT 18 U/L (13-56); Albumin, Serum 3.8 g/dL (3.2-5.0); Alkaline Phosphatase 85 U/L (45-117); Bilirubin, Direct 0.23 mg/dL (0.00-0.30); Globulin 3.4 g/dL (2.2-4.2); Protein, Total 7.2 g/dL (6.4-8.2)
[2022-01-17] MEDS: Bupivacaine Mpf 0.5% 30 ML VIAL (11:42)
--- NOTE | 2022-01-17 11:56 | OP.PCM_ITS ---
Problems Associated Problem List Diagnoses (1) Encounter for sterilization: Report of Operation Date of Procedure: 01/17/22 Pre-Operative Diagnosis: desires sterilization Post-Operative Diagnosis: same Surgery/Procedure Performed:: Laparoscopic bilateral salpingectomy Description of Surgical Findings:: normal tubes and ovaries bilaterally Surgeon: Viridiana Hickman Type of Anesthesia: General Special Medications: 0.5% marcaine Specimen's removed: bilateral fallopian tubes Drains: none Estimated Blood Loss (mL): <5cc Fluids Replaced: 1200 Description of Procedure: After informed consent was obtained patient was taken to the operating room she was placed in supine position she was given anesthesia. She was then placed in the [facility] stirrups and she was prepped and draped in normal sterile fashion. Bladder was drained prior to the start of procedure. At this time attention was turned to the vaginal portion where weighted speculum placed at posterior fornix vagina single-tooth tenaculum was used to gently grasp the internal the cervix. uterus was gently sounded to approximately 8cm. Uterine manipulator was placed without difficulty. Legs then placed in parallel with the abdomen the tenaculum and the weighted speculum were removed. 2 towel clamps were placed at level of umbilicus. Marcaine was injected infraumbilical and a small incision was made. The 5 mm trocar was placed under direct visualization. CO2 gas was used to insufflate the intra- abdominal cavity. Upon inspection no gross abnormalities appreciated- the uterus tubes and ovaries appeared to be normal. At this time then the LLQ and RLQ ports were placed First Marcaine was injected and small incision was made a knife and the 5 mm trocars were placed. At this time then tubes were traced back to the fimbriated ends. Enseal was used to coagulate and ligate along mesosalpinx bilaterally until tubes removed completely. Good hemostasis was appreciated. At this time procedure was deemed complete successful. The gas was desufflated on from the intra-abdominal cavity. The trochars were removed. Skin was closed using 4-0 Monocryl in a subcutaneous fashion. Dermabond glue was placed. Instrument lap and needle counts were correct ?2. The uterine manipulator was removed. Vaginal sweep was performed it was negative. There were no complications anticipated normal postoperative course for this patient. Grafts/Implants Used: none Procedure Start Time: 11:42 Procedure Stop Time: 11:55 Complications none Admit VTE Documentation VTE Present on Admission: Yes VTE Mechan Device Prophylaxis: SCD's VTE Pharm Prophylaxis ordered?: No Reason prophylaxis not ordered:: Procedure Not Indicated
--- NOTE | 2022-01-17 12:03 | EX.PCM.DISCH ---
Discharge Instructions Procedure Other Diet Discharge Diet: No restrictions Activity May resume sexual activity in: 2 weeks Lifting Restrictions: 20-25 lbs Dressing / Incision Call your doctor if your incision/area has: Continuous Slow Oozing, Sudden Increased Bleeding, Increased Pain/ Swelling, Increased Redness, Foul Smelling Discharge and Swelling at the incision site Call your doctor if you observe: Fever of 101 or Higher, Inability to urinate, Inability to have a bowel movement, Using more than 1 pad per hour and Uncontrolled pain Additional Dressing/Incision Instructions:: You have skin glue over your incision sites, do not pick off. You may shower and let the soap and water run over the incision sites and dab dry. Follow Up Care Please Follow Up With: Viridiana Hickman MD When: 1-2 weeks post OP if you need an appointment please call [phone] Test Results: Test results from this visit will be discussed in further detail at your follow-up appointment, if applicable. Discharge Plan Admission Attending Provider: Viridiana Hickman Primary Care Provider: Nereida Martinez NP Discharge Orders/Prescriptions Prescriptions: No Action calcium carbonate-vitamin D3 1 EACH tablet 1 ea PO BID RF: 0 fluoxetine [Prozac] 10 mg Capsule 10 mg PO DAILY RF: 0 omeprazole 20 mg Capsule,Delayed Release(Dr/Ec) 20 mg PO DAILY RF: 0
== END 2022-01-17 23:59 | disposition home or self-care (01) ==
LOC: SDC 09:51 → AC 09:52
PROVIDERS: Anesthesiology; PCP Nurse Practitioner Family; Referring Provider Obstetrics & Gynecology; Visit Provider Obstetrics & Gynecology
PROC: (CPT 58661; principal; 2022-01-17 11:20)
DX: Z30.2 Encounter for sterilization (principal); F17.200 Nicotine dependence, unspecified, uncomplicated
CPT/HCPCS: 58661; 00840; 80076; 81025; 85027; 85610; 85730; 87426; 88302; J7030; C1760; J2405